=== PATIENT | male | born 1940 | race Two or more races ===

== ENCOUNTER 2020-08-30 | Outpatient (REF) | payer MEDICARE, OTHER, SELFPAY ==
[2020-08-30 07:31] LABS: Hematocrit 34.8 % (42-52); Hemoglobin 9.6 g/dl (14.0-18.0); Mean Corpuscular HGB Conc 27.6 g/dl (31.0-36.0); Mean Corpuscular Hemoglobin 22.9 pg (27.0-33.0); Mean Corpuscular Volume 83.1 fL (80-98); Mean Platelet Volume 9.8 fL (9.4-12.4); Platelet Count 407 X10*3/uL (160-400); Red Blood Count 4.19 X10*6/uL (4.60-5.80); Red Cell Distribution Width 20.4 % (11.0-16.0); White Blood Count 7.1 X10*3/uL (4.8-10.8)
[2020-08-30 07:59] LABS: Anion Gap 14 (12-20); Blood Urea Nitrogen 10 mg/dL (9-16); Calcium 8.2 mg/dL (8.4-10.2); Carbon Dioxide 34 mmol/L (22-29); Chloride 102 mmol/L (96-108); Estimated Glomerular Filt Rate > 60; Glucose Random 195 mg/dL (60-115); Potassium 4.6 mmol/l (3.3-5.1); Sodium 145 mmol/L (135-145)
== END 2020-08-30 00:01 | disposition home or self-care (01) ==
LOC: HO.MMNH1L
PROVIDERS: Visit Provider Family Medicine
DX: U07.1 COVID-19 (principal); I10 Essential (primary) hypertension; E11.9 Type 2 diabetes mellitus without complications
CPT/HCPCS: 36415; 80048; 85027

== ENCOUNTER 2023-06-26 09:49 | Outpatient (AMB) | payer MEDICARE, OTHER, SELFPAY ==
--- NOTE | 2023-06-26 10:04 | HO.NEPHOV ---
HPI HPI Comments History of Present Illness Details I had the privilege of seeing Servando in follow-up of his mild CKD on backdrop of history of hyperkalemia. 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 He had been initiated on Farxiga. He does not monitor his blood sugar closely. His blood pressure has been at goal. He does not have any edema, shortness of breath, proximal nocturnal dyspnea or orthopnea. He has no urinary symptoms and takes adequate fluid intake by mouth. He avoids nonsteroidal anti-inflammatory medications. He had no active complaints at the time of this office visit. [facility] Medical History (Updated 06/27/23 @ 06:40 by Saul Landa MD) Chronic kidney disease, stage 2 (mild) Essential (primary) hypertension Hyperkalemia Family History (Updated 06/26/23 @ 10:21 by Joslyn Villar MA) Maternal Uncle Diabetes Mother Cancer Brother Cancer (Updated 06/26/23 @ 10:16 by Joslyn Villar MA) Alcohol intake: never Patient Tobacco Use Status: Never used Tobacco Vital Signs 06/26/23 10:07 Height 5 ft 9 in Weight 245 lb BMI 36.2 BP 138/72 Blood Pressure Location Rt brachial Position Sitting Physical Exam Vital Signs: Last Vital Signs BP 138/72 06/26/23 10:07 BMI result Body Mass Index 36.2 Const General: comfortable and no acute distress Orientation/consciousness: patient oriented x3 HEENT Head: Yes normocephalic Mouth: Normal oral and palatal mucosa present Eyes EOM: EOMs intact bilaterally Neck Neck: Yes supple Resp Auscultation: clear to auscultation bilaterally Cardio Jugular venous distension: no JVD Rate: regular rate GI Palpation (GI): Soft to palpation Auscultation: normal bowel sounds General: Yes no CVA tenderness Back/Spine/Pelvis Back: no CVA tenderness Skin General skin exam: no rashes or lesions noted Neuro General: patient oriented x3 and moves all extremities Extrem General: Yes no pedal edema Assessment & Plan Assessment & Plan (1) Chronic kidney disease, stage 2 (mild): Code(s): N18.2 - Chronic kidney disease, stage 2 (mild) (2) Hypertension: Code(s): I10 - Essential (primary) hypertension Plan 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 He had been on ACEI which had been discontinued. When he had hyperkalemia he most likely had reduced aldosterone, reduced distal perfusion of the nephron with relative insulin deficiency. His hyperkalemia had resolved. His blood sugar control needs to be better. He had been started on Farxiga which is tolerating well. His blood pressure in the office was at goal. He is tolerating allopurinol and statins. He is also taking Florinef. I did not make any medication changes today. He was encouraged to cut back salt in the diet, lose weight and remain well hydrated. Follow-up about laboratory studies were ordered. All questions were answered. Time spent retrieving data, patient encounter and documentation 31 minutes. Orders: Orders Calcium 06/26/23 N18.2 - Chronic kidney disease, stage 2 (mild) Protein Creatinine Ratio, Ur 06/26/23 N18.2 - Chronic kidney disease, stage 2 (mild) Electrolytes 06/26/23 N18.2 - Chronic kidney disease, stage 2 (mild) Blood Urea Nitrogen 06/26/23 N18.2 - Chronic kidney disease, stage 2 (mild) Creatinine 06/26/23 N18.2 - Chronic kidney disease, stage 2 (mild) Coding Level of Care Code Est Pt Level 4 (12028) Diagnoses Chronic kidney disease, stage 2 (mild) N18.2 Hypertension I10
[2023-06-26 10:07] VITALS: BP 138/72; BMI 36.2
== END 2023-06-26 10:44 | disposition home or self-care (01) ==
PROVIDERS: Visit Provider Internal Medicine Nephrology
DX: I12.9 Hypertensive chronic kidney disease with stage 1 through stage 4 chronic kidney disease, or unspecified chronic kidney disease (principal); N18.2 Chronic kidney disease, stage 2 (mild)
CPT/HCPCS: 99214

== ENCOUNTER → 2023-06-26 09:49 | Outpatient (BNVA) | payer OTHER, MEDICARE, SELFPAY | PROVIDERS: Visit Provider Internal Medicine Nephrology ==

== ENCOUNTER 2023-09-25 15:41 | Outpatient (AMB) | payer MEDICARE, OTHER, SELFPAY ==
--- NOTE | 2023-09-25 16:11 | HO.NEPHOV_ITS ---
HPI HPI Comments History of Present Illness Details I had the privilege of seeing Servando in follow-up of his mild CKD on backdrop of history of hyperkalemia. He has history of hyperkalemia and had been taking Florinef. He has been developing profound lower extremity edema with weight gain but denied any shortness of breath, paroxysmal nocturnal dyspnea or orthopnea. 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 He had been initiated on Farxiga. He does not monitor his blood sugar closely. His blood pressure has been at goal. He has no urinary symptoms and takes adequate fluid intake by mouth. He avoids nonsteroidal anti-inflammatory medications. He had no other active complaints at the time of this office visit [facility] Medical History (Updated 10/01/23 @ 12:00 by Saul Landa MD) Chronic kidney disease, stage 2 (mild) Essential (primary) hypertension Hyperkalemia Family History Maternal Uncle Diabetes Mother Cancer Brother Cancer Social History Alcohol intake: never Patient Tobacco Use Status: Never used Tobacco Vital Signs 09/25/23 16:14 Height 5 ft 9 in Weight 259 lb 4 oz BMI 38.3 BP 136/80 Blood Pressure Location Lt brachial Position Sitting Pulse 76 Pulse Source Pulse Oximeter Pulse Oximetry (%) 94 Oxygen Delivery Method Room Air Physical Exam Vital Signs: Last Vital Signs Pulse 76 09/25/23 16:14 BP 136/80 09/25/23 16:14 Pulse Ox 94 09/25/23 16:14 Oxygen Delivery Method Room Air 09/25/23 16:14 BMI result Body Mass Index 38.3 Const General: comfortable and no acute distress Orientation/consciousness: patient oriented x3 HEENT Head: Yes normocephalic Mouth: Normal oral and palatal mucosa present Eyes EOM: EOMs intact bilaterally Neck Neck: Yes supple Resp Auscultation: clear to auscultation bilaterally Cardio Jugular venous distension: no JVD Rate: regular rate GI Palpation (GI): Soft to palpation Auscultation: normal bowel sounds General: Yes no CVA tenderness Back/Spine/Pelvis Back: no CVA tenderness Skin General skin exam: no rashes or lesions noted Neuro General: patient oriented x3 and moves all extremities Extrem General: Yes edema Assessment & Plan Assessment & Plan (1) Chronic kidney disease, stage 2 (mild): Code(s): N18.2 - Chronic kidney disease, stage 2 (mild) (2) Hypertension: Code(s): I10 - Essential (primary) hypertension Qualifiers: Hypertension type: primary hypertension Qualified Code(s): I10 - Essential (primary) hypertension (3) Edema: Code(s): R60.9 - Edema, unspecified Qualifiers: Edema type: unspecified Qualified Code(s): R60.9 - Edema, unspecified Plan 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 He had been on ACEI which had been discontinued. When he had hyperkalemia he most likely had reduced aldosterone, reduced distal perfusion of the nephron with relative insulin deficiency. His hyperkalemia had resolved. Currently has hypervolemia. I held his Florinef and started him on Lasix 20 mg daily. His blood sugar control needs to be better. He had been started on Farxiga which is tolerating well. His blood pressure in the office was at goal. He is tolerating allopurinol and statins.I did not make any other medication changes today. He was encouraged to cut back salt in the diet, lose weight and remain well hydrated. Follow-up about laboratory studies were ordered. All questions were answered. Orders: Orders Creatinine 09/25/23 I10 - Essential (primary) hypertension, N18.2 - Chronic kidney disease, stage 2 (mild) Blood Urea Nitrogen 09/25/23 I10 - Essential (primary) hypertension, N18.2 - Chronic kidney disease, stage 2 (mild) Electrolytes 09/25/23 I10 - Essential (primary) hypertension, N18.2 - Chronic kidney disease, stage 2 (mild) Medications: New furosemide (Lasix) 20 mg PO DAILY 30 tabs 0RF Coding Level of Care Code Est Pt Level 4 (84851) Diagnoses Chronic kidney disease, stage 2 (mild) N18.2 Primary hypertension I10 Hypertension type: primary hypertension Edema, unspecified type R60.9 Edema type: unspecified Results Reviewed Nephrology Results: Hgb 9.6 g/dl (14.0-18.0) L 08/30/20 WBC 7.1 X10*3/uL (4.8-10.8) 08/30/20 Plt Count 407 X10*3/uL (160-400) H 08/30/20 Sodium 145 mmol/L (135-145) 08/30/20 Potassium 4.6 mmol/l (3.3-5.1) 08/30/20 Chloride 102 mmol/L (96-108) 08/30/20 Carbon Dioxide 34 mmol/L (22-29) H 08/30/20 BUN 10 mg/dL (9-16) 08/30/20 Creatinine 0.77 mg/dL (0.5-1.4) 08/30/20 Calcium 8.2 mg/dL (8.4-10.2) L 08/30/20
[2023-09-25 16:14] VITALS: BP 136/80; PULSE 76; O2SAT 94; BMI 38.3
== END 2023-09-25 16:47 | disposition home or self-care (01) ==
LOC: HO.HKAS 15:41
PROVIDERS: Visit Provider Internal Medicine Nephrology
DX: I12.9 Hypertensive chronic kidney disease with stage 1 through stage 4 chronic kidney disease, or unspecified chronic kidney disease (principal); N18.2 Chronic kidney disease, stage 2 (mild); R60.9 Edema, unspecified
CPT/HCPCS: 99214

== ENCOUNTER → 2023-09-25 15:41 | Outpatient (BNVA) | payer MEDICARE, OTHER, SELFPAY | PROVIDERS: Visit Provider Internal Medicine Nephrology | DX: I12.9 Hypertensive chronic kidney disease with stage 1 through stage 4 chronic kidney disease, or unspecified chronic kidney disease (principal); N18.2 Chronic kidney disease, stage 2 (mild); R60.9 Edema, unspecified | CPT/HCPCS: 99212 ==

== ENCOUNTER 2023-10-25 11:10 | Outpatient (REF) | payer MEDICARE, OTHER, SELFPAY ==
[2023-10-25 17:40] LABS: Anion Gap 19 (12-20); Blood Urea Nitrogen 14 mg/dL (9-16); Carbon Dioxide 27 mmol/L (22-29); Chloride 102 mmol/L (96-108); Estimated Glomerular Filt Rate > 60; Potassium 3.4 mmol/L (3.3-5.1); Sodium 145 mmol/L (135-145)
== END 2023-10-25 11:11 | disposition home or self-care (01) ==
LOC: HO.HKASLDS 11:10
PROVIDERS: Visit Provider Internal Medicine Nephrology
DX: I10 Essential (primary) hypertension (principal); N18.2 Chronic kidney disease, stage 2 (mild); R60.9 Edema, unspecified; E87.5 Hyperkalemia
CPT/HCPCS: 36415; 80051; 82565; 84520; 99212

== ENCOUNTER 2023-10-25 13:54 | Outpatient (AMB) | payer MEDICARE, OTHER, SELFPAY ==
[2023-10-25 13:32] VITALS: BP 110/62; PULSE 84; O2SAT 95; BMI 37.7
--- NOTE | 2023-10-25 13:32 | HO.NEPHOV_ITS ---
[facility] Medical History (Updated 10/01/23 @ 12:00 by Saul Landa MD) Chronic kidney disease, stage 2 (mild) Essential (primary) hypertension Hyperkalemia Family History Maternal Uncle Diabetes Mother Cancer Brother Cancer Social History Alcohol intake: never Patient Tobacco Use Status: Never used Tobacco Vital Signs 10/25/23 13:32 Height 5 ft 9 in Weight 255 lb BMI 37.7 BP 110/62 Blood Pressure Location Lt brachial Position Sitting Pulse 84 Pulse Source Pulse Oximeter Pulse Oximetry (%) 95 Oxygen Delivery Method Room Air Physical Exam Vital Signs: Last Vital Signs Pulse 84 10/25/23 13:32 BP 110/62 10/25/23 13:32 Pulse Ox 95 10/25/23 13:32 Oxygen Delivery Method Room Air 10/25/23 13:32 BMI result Body Mass Index 37.7 Const General: comfortable and no acute distress Orientation/consciousness: patient oriented x3 HEENT Head: Yes normocephalic Mouth: Normal oral and palatal mucosa present Eyes EOM: EOMs intact bilaterally Neck Neck: Yes supple Resp Auscultation: clear to auscultation bilaterally Cardio Jugular venous distension: no JVD Rate: regular rate GI Palpation (GI): Soft to palpation Auscultation: normal bowel sounds General: Yes no CVA tenderness Back/Spine/Pelvis Back: no CVA tenderness Skin General skin exam: no rashes or lesions noted Neuro General: patient oriented x3 and moves all extremities Extrem General: Yes edema Assessment & Plan Assessment & Plan (1) Hypertension: Code(s): I10 - Essential (primary) hypertension Qualifiers: Hypertension type: primary hypertension Qualified Code(s): I10 - Essential (primary) hypertension (2) Chronic kidney disease, stage 2 (mild): Code(s): N18.2 - Chronic kidney disease, stage 2 (mild) (3) Edema: Code(s): R60.9 - Edema, unspecified Qualifiers: Edema type: unspecified Qualified Code(s): R60.9 - Edema, unspecified Plan 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 He had been on ACEI which had been discontinued. When he had hyperkalemia he most likely had reduced aldosterone, reduced distal perfusion of the nephron with relative insulin deficiency. His hyperkalemia had resolved. Currently has hypervolemia. I held his Florlailaf at the last visit and started him on Lasix 20 mg daily. I increased his lasix to 40 mg daily from today. His blood sugar control needs to be better. He had been started on Farxiga which is tolerating well. His blood pressure in the office was at goal. He is tolerating allopurinol and statins.I did not make any other medication changes today. He was encouraged to cut back salt in the diet, lose weight and remain well hydrated. Follow-up about laboratory studies were ordered. All questions were answered Orders: Orders Blood Urea Nitrogen 2 Months I10 - Essential (primary) hypertension, N18.2 - Chronic kidney disease, stage 2 (mild), R60.9 - Edema, unspecified Creatinine 2 Months I10 - Essential (primary) hypertension, N18.2 - Chronic kidney disease, stage 2 (mild), R60.9 - Edema, unspecified Electrolytes 2 Months I10 - Essential (primary) hypertension, N18.2 - Chronic kidney disease, stage 2 (mild), R60.9 - Edema, unspecified Medications: Changed From furosemide (Lasix) 20 mg PO DAILY 30 tabs 0RF To furosemide 40 mg PO DAILY 30 tabs 3RF Coding Level of Care Code Est Pt Level 4 (60639) Diagnoses Primary hypertension I10 Hypertension type: primary hypertension Chronic kidney disease, stage 2 (mild) N18.2 Edema, unspecified type R60.9 Edema type: unspecified Results Reviewed Nephrology Results: Hgb 9.6 g/dl (14.0-18.0) L 08/30/20 WBC 7.1 X10*3/uL (4.8-10.8) 08/30/20 Plt Count 407 X10*3/uL (160-400) H 08/30/20 Sodium 145 mmol/L (135-145) 08/30/20 Potassium 4.6 mmol/l (3.3-5.1) 08/30/20 Chloride 102 mmol/L (96-108) 08/30/20 Carbon Dioxide 34 mmol/L (22-29) H 08/30/20 BUN 10 mg/dL (9-16) 08/30/20 Creatinine 0.77 mg/dL (0.5-1.4) 08/30/20 Calcium 8.2 mg/dL (8.4-10.2) L 08/30/20
== END 2023-10-25 14:17 | disposition home or self-care (01) ==
PROVIDERS: Visit Provider Internal Medicine Nephrology
DX: I12.9 Hypertensive chronic kidney disease with stage 1 through stage 4 chronic kidney disease, or unspecified chronic kidney disease (principal); N18.2 Chronic kidney disease, stage 2 (mild); R60.9 Edema, unspecified
CPT/HCPCS: 99214

== ENCOUNTER 2025-03-03 13:38 | Outpatient (REF) | payer MEDICARE, OTHER, SELFPAY ==
--- OUTSIDE RECORDS SUMMARY | 2019-03-28 11:20 | XMS_ITS | Continuity of Care Document ---
Author Organization [facility] Address [address] [place] [phone] Phone Care Team Providers Care Boat Deckhand Name Role Phone Filiberto Sandhu DO Unavailable Unavailable Advance Directives Directive Yes / No Effective Date File Name No Information Encounters Encounter Description Practice Location Reason(s) For Visit Diagnoses Date Provider [facility], [address], [id number], [place] tel:[phone] [address] [place] [address] No Information 2018 Edson De Los Santos. [address] [place] [address], [id number], [place]. tel:[phone] Family History Family Member Type Diagnosis Age At Onset No Information Payers Payer name Insurance type Covered republican ID Authoriza tion(s) No Information Social History Type Description Quantity Date Captured Comments Sex Male Smoking Status No Information Chief Complaint And Reason For Visit No Information History Of Present Illness Encounter Date Complaint History Of Prese nt Illness No Information Instructions Date Instruction Additional Infor mation No Information Assessments Type Assessment Date No Information
--- OUTSIDE RECORDS SUMMARY | 2025-03-03 14:27 | XMS_ITS | Clinical Summary ---
Author Organization [facility] Address [address] [place] [phone] Phone Care Team Providers Care C Unix Developer Name Role Phone Unknown, Unknown Primary Care Provider Namrata boucher Allergies Active Allergy Reactions Criticality Noted Date Comments Prednisolone Other (See Comments) 10/23/2011 elevated IOP Medications acetaminophen (TYLENOL) 325 mg tablet Take 2 tablets (650 mg total) by mouth every 6 (six) hours as needed for mild pain or fever. 0 8 Active dorzolamide-ti molol (COSOPT) 22.3-6.8 mg/mL ophthalmic solution Place 1 drop into each eye 2 (two) times a day. 10 mL 12 8 Active fluticasone propionate (FLONASE) 50 mcg/actuation nasal spray 1 spray by Nasal route daily. 8 Active prednisoLONE acetate (PRED MILD) 0.12 % ophthalmic suspension Place 1 drop into the right eye daily. 5 mL 8 Active lisinopril (PRINIVIL,ZEST RIL) 40 MG tablet Take 1 tablet (40 mg total) by mouth daily. 8 Active gabapentin (NEURONTIN) 300 MG capsule Take 1 capsule (300 mg total) by mouth 3 (three) times a day. 8 Active cetirizine (ZYRTEC) 10 MG tablet Take 1 tablet (10 mg total) by mouth daily. 8 Active glipiZIDE (GLUCOTROL) 10 MG tablet Take 1 tablet (10 mg total) by mouth 2 (two) times a day before meals. Active metFORMIN (GLUCOPHAGE) 1000 MG tablet Take 1 tablet (1,000 mg total) by mouth 2 (two) times a day with meals. 8 Active SITagliptin (JANUVIA) 100 MG tablet Take 1 tablet (100 mg total) by mouth daily. Active atorvastatin (LIPITOR) 40 MG tablet Take 1 tablet (40 mg total) by mouth daily. Active metoprolol succinate (TOPROL-XL) 25 MG 24 hr tablet Take 1 tablet (25 mg total) by mouth daily. Active omeprazole (PRILOSEC) 20 MG capsule Take 1 capsule (20 mg total) by mouth 2 (two) times a day. Active traZODone (DESYREL) 50 MG tablet Take 1 tablet (50 mg total) by mouth nightly. 8 Active tamsulosin (FLOMAX) 0.4 mg Cap Take 1 capsule (0.4 mg total) by mouth daily. Active ascorbic acid, vitamin C, (VITAMIN C) 500 MG tablet Take 1 tablet (500 mg total) by mouth daily. Active senna (SENOKOT) 8.6 mg tablet Take 1 tablet by mouth 2 (two) times a day. 8 Active dextrose (D50W) 50 % Syrg syringe Inject 0-50 mL (0-25 g total) into the vein as needed (see administration instructions). Active dextrose (D50W) 50 % Syrg syringe Inject 100 mL (50 g total) into the vein as needed (BG<70). 8 Active allopurinol (ZYLOPRIM) 100 MG tablet Take 3 tablets (300 mg total) by mouth daily. Active amLODIPine (NORVASC) 10 MG tablet Take 0.5 tablets (5 mg total) by mouth daily. 8 Active DULoxetine (CYMBALTA) 60 MG capsule Take 1 capsule (60 mg total) by mouth daily. 8 Active polyethylene glycol (MIRALAX) 17 gram packet Take 17 g by mouth daily as needed. 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 Not on jori e 12/01/2022 Are you concerned about learning? Not on file 12/01/2022 No 12/01/2022 No 12/01/2022 Digital Access Answer Date Recorded No 01/01/2023 No 01/01/2023 No 01/01/2023 Reliable internet access at home? Not on file 01/01/2023 Device with a working camera? Not on file Sex and Gender Information Value Date Recorded Sex Assigned at Not on file Legal Sex Male 2:54 AM EST Gender Identity Not on file Sexual Orientation Not on file Last Filed Vital Signs Vital Sign Reading Time Taken Comments Blood Pressure 142/77 07/04/2018 7:57 AM EST Pulse 68 07/04/2018 7:57 AM EST Temperature 36.3 C (97.4 F) 07/04/2018 7:57 AM EST Respiratory Rate 18 07/04/2018 7:57 AM EST Oxygen Saturation 96% 07/04/2018 12:48 AM EST Inhaled Oxygen Concentration 50% 06/28/2018 3 :07 PM EST Weight 136.1 kg (300 lb) 06/27/2018 3:36 PM EST Height 177.8 cm (5' 10 ) 06/27/2018 3:36 PM EST Body Mass Index 43.05 06/27/2018 3:36 PM EST Plan of Treatment Health Maintenance Due Date Last Done Comments Adult Td,Tdap Booster 1942 BLOOD PRESSURE 1942 HEMOGLOBIN A1C 1942 DEPRESSION SCREENING 1954 PNEUMOCOCCAL VACCINES (50+ years) (1 of 2 - PCV) 1961 DIABETIC EYE EXAM 09/26/2014 RSV VACCINE (1 - 1-dose 75+ series) 2017 CREATININE LEVEL 07/04/2019 07/04/2018, , 07/02/2018, Additional history exists POTASSIUM LEVEL 07/04/2019 07/04/2018, 06/07, 07/02/2018, Additional history exists COVID-19 VACCINE ( - season) 2024 08/24/2020 ZOSTER VACCINES Completed 01/27/2019, 12/2018, 09/23/2018, Additional history exists HEPATITIS A VACCINES Aged Out No long er eligible based on patient's age to complete this topic HIB VACCINES Aged Out No longer eligi ble based on patient's age to complete this topic MENINGOCOCCAL VACCINES (ACWY) Aged Out No longer eligible based on patient's age to complete this topic MENINGOCOCCAL VACCINES (B) Aged Out N o longer eligible based on patient's age to complete this topic Medical Devices Not on file Procedures Procedure Name Priority Date/Time Associated Diagnosis Comments BASIC METABOLIC PANEL Routine 07/04/2018 9:37 AM EST from Last 3 Months or Most Recently Relevant to Health Maintenance Results * (ABNORMAL) Basic metabolic panel (07/04/2018 9:37 AM EST) SODIUM 141 136 - 145 mmol/L [facility] POTASSIUM 4.0 3.4 - 5.1 mmol/L [facility] CHLORIDE 101 98 - 107 mmol/L [facility] CO2 28 22 - 31 mmol/L [facility] BUN 19 6 - 23 mg/dL [facility] CREATININE 0.88 0.50 - 1.20 mg/dL [facility] GLUCOSE 270(H) 70 - 100 mg/dL [facility] CALCIUM 8.8 8.8 - 10.7 mg/dL [facility] EGFR 83 >59 mL/min/1.7 3m2 [facility] Comment:If patient is black, multiply result by 1.159. Estimated glomerular filtration rate calculated using the CKD-EPI equation. ANION GAP 12 7 - 17 mmol/L [facility] Blood 07/04/2018 9:37 AM EST 07/04/2018 10:10 AM EST Emerita Rothman MD LAB BLOOD ORDERABLES Final Re sult Performing Organization Address City/State/[facility] Co de Phone Number [facility] [address] [place] [address] from Last 3 Months or Most Recently Relevant to Health Maintenance Insurance [employer] TOTAL CHOICE INDEMNITY MEDICARE PART A & B [employer] TOTAL CHOICE INDEMNITY MEDICARE PART A & B [employer] INDEMNITY MEDICARE PART A & B [employer] INDEMNITY MEDICARE PART A & [place] [address] [place] [address] TOTAL CHOICE INDEMNITY MEDICARE PART A & B [employer] [facility] TOTAL CHOICE INDEMNITY MEDICARE PART A & B [employer] [facility] TOTAL CHOICE INDEMNITY MEDICARE PART A & B [employer] TOTAL CHOICE INDEMNITY MEDICARE PART A & B [employer] TOTAL CHOICE INDEMNITY MEDICARE PART A & [place] [address] [place] [address] TOTAL CHOICE INDEMNITY MEDICARE PART A & B Advance Directives For more information, please contact: [phone] (9AM - 5PM [place], Sunday-Sunday) * Full Code (Confirmed) (Latest Code Status on File) Date Activated Date Inactivated Comments 06/27/2018 11:01 PM 07/04/2018 4:09 PM Question Answer Comments Code Status Confirmed With: FamilySurrogate Code Status Communicated To: Other (specify belo w) Code Discussion Comments: Archana Barahona * Full Code (Presumed) Date Activated Date Inactivated Comments 06/27/2018 6:33 PM 06/27/2018 11:01 PM Care Teams C Unix Developer Relationship Specialty Start Date End Date Unknown, Unknown, PCP - General 06/10/18 Additional Source Comments The information contained in this document represents components of the legal health record. It is not the complete legal health record.[facility]
--- OUTSIDE RECORDS SUMMARY | 2025-03-03 14:27 | XMS_ITS | Data Portability ---
Author Organization [place] [facility], Allergy Address [address] [place] [id number] Care Team Providers Care Petroleum Production Engineer Name Role Phone RUPAL WOOD Primary Care Provider Assessment Encounter Date Assessment Date Assessment LastModified by Organization Details LastModified Time 01/22/2024 01/22/2024 Patient with history of bilateral hearing loss, wearing hearing aids, notes recent upper respiratory infection and trauma to his left ear canal with a Q-tip. CT scan January 07 showed left maxillary sinus fluid and an opacified right middle ear and mastoid. Examination today shows a retracted left tympanic membrane and a dull right membrane without obvious fluid. Tuning fork examination was midline. There is a marked septal deviation to the left side. Suggest trial of fluticasone nasal spray and follow-up with audiometric testing [email or web address] Not available 01/22/2024 12:01:55 02/12/2024 02/12/2024 Recommendation s: Follow up with referring provider. jama Not available 02/12/2024 11:01:53 Plan of Treatment Reminders Order Date Submit Date Provider Last Modified By Organization Details Last Modified Time Details Appointments None recorded. Lab None recorded. Referral None recorded. Procedures None recorded. Surgeries None recorded. Imaging None recorded. Medication Orders fluticasone propionate 50 mcg/actuati on nasal spray,suspe nsion 2023 024 [facility], [address] [place] [address], [phone], 12:04:49 Patient TargetsNo targets recorded. Patient InstructionsNo instructions recorded. Reason for Referral None Reported. Results Created Date Observation Date Name Description Value Unit Range Abnormal Flag Note LastModifiedBy Organization Detail LastModifiedTime 02/15/20 24 02/04/2024 audio gram No observ ation record ed. [email or web address] Not Available 2023 10:49:11 02/15/20 24 03/14/2020 audio gram No observ ation record ed. [email or web address] Not Available 2023 10:50:21 02/15/20 24 11/17/2018 audio gram No observ ation record ed. [email or web address] Not Available 2023 10:51:21 02/15/20 24 audio gram No observ ation record ed. [email or web address] Not Available 02/03 16:25:27 Result Notes None recorded. Problems Name Problem SNOMED Code Status Onset Date Resolution Date Notes Provider Name and Address Organization Details Recorded Time Chronic maxillary sinusitis 95736186 Active 2023 MEGHNA HOOPER MD [address] [address], [place], [phone], [facility] - [facility] 4 11:59:38 Deviated nasal septum 863887465 Active 2023 MEGHNA HOOPER MD [address] [address], [place], [address], [facility] 4 11:59:43 Dysfunction of eustachian tube 54728148 Active 2023 MEGHNA HOOPER MD [address] [address], [place], [address], [facility] [place] 4 12:00:24 Sensorineural hearing loss of bilateral ears 631276210 Active 2023 DARY JACKSON [address] [place] [address], [place], [phone], [facility] 4 11:18:13 Problem Notes None recorded. Procedures Surgical History Date Name Laterality Status Provider Name and Address Organization Details Recorded Time 02/12/2024 Comp Audio with Tymps - 71991 & 37387 completed DARY JACKSON [address], [address], [facility] - [facility] 02/12/2024 11:18:06 Imaging Results None recorded. Procedure Notes None recorded. Medical Equipment None Reported. Medications Name Sig Start Date Stop Date Status Note LastModified by Organization Details LastModified Time fluticasone propionate 50 mcg/actuatio n nasal spray,suspen delroy Schulenburg 2 sprays every day by intranasal route. 2023 active Not Available Not Available Not Avai lable Vitals Date Recorded Body weight Body mass index (BMI) Body height Provider Name and Address Organization Details Last Updated DateTime 01/22/2024 919370.17 g 39.9 kg/m2 165.1 cm [facility] 01/22/2024 11:31:12 Social History None recorded. Functional Status None recorded. Mental Status None recorded. Family History Nothing Reported. Medical History Condition Response Kidney Disease Y Hypertension Y Past Encounters Encounter ID Performer Location Encounter Start Date Encounter Closed Date Diagnosis/Indication Diagnosis SNOMED-CT Code Diagnosis ICD10 Code Diagnosis Note [id number] MEGHNA MASON MD [facility] [address] [address] 01/22/2024 11:14:49 01/22/2024 12:06:44 Chronic maxillary sinusitis 25397808 J32.0 Deviated nasal septum 12 3597285 J34.2 Dysfunctio n of eustachian tube 60591653 H68.023 [id number] DARY JACKSON [facility] [address] [address] 02/12/2024 11:01:14 02/12/2024 18:43:31 Sensorineural hearing loss of bilateral ears 114384486 H90.3 Audiologic al evaluation results:Ri ght ear:Mild to profound sensorineu ral hearing loss with fair word recognitio n.Left ear:Modera te to profound sensorineu ral hearing loss with good word recognitio n.Tympanom etry:Right Ear:Type ALeft Ear:Type A Health Concerns Section Related Observation LastModified by Organization Detai ls LastModified Time None Recorded Concern Status LastModified by Organization Details LastModified Time None Recorded Advance Directives Directive None Recorded Payers Insurance Date Sequence Insurance Name Policy Number Policy Tinoco Covered Member ID Tinoco Member ID Guarantor Name 02/12/2024 1 [place]IC[place]: [facility] [employer] Rajendra Colon [id number] Servando Colon 02/12/2024 2 [facility] PLAN F (MEDICARE SUPPLEMENT) [id number] Rajendra Colon [id number] Servando Colon
--- OUTSIDE RECORDS SUMMARY | 2025-03-03 14:27 | XMS_ITS | Clinical Summary ---
Author Organization [facility] Address [address] [facility] [address] [place] [address] Phone Care Team Providers Care Cotton Acreage Measurer Name Role Phone Darian Shaffer MD Primary Care Provider [phone] Allergies Active Allergy Reactions Criticality Noted Date Comments Heparin Medium 07/28/2020 Other reaction(s): Nausea Medications acetaminophen (TYLENOL) 325 MG tablet Take 500 mg by mouth every 4 (four) hours if needed for mild pain Active albuterol HFA (PROVENTIL HFA;VENTOLIN HFA) 108 (90 Base) MCG/ACT inhaler Inhale 2 puffs every 6 (six) hours if needed for wheezing Active ascorbic acid (VITAMIN C) 500 MG tablet Take 500 mg by mouth 1 (one) time each day Active allopurinol (ZYLOPRIM) 300 MG tablet Take 300 mg by mouth 1 (one) time each day Active atorvastatin (LIPITOR) 40 MG tablet Take 40 mg by mouth 1 (one) time each day Active cetirizine (ZyrTEC) 10 MG chewable tablet Chew 10 mg 1 (one) time each day Active colchicine 0.6 MG tablet Take 0.6 mg by mouth 1 (one) time each day Active dorzolamide-marva olol (COSOPT) 22.3-6.8 MG/ML ophthalmic solution Administer 1 drop into the left eye 2 (two) times a day Active Dulaglutide 1.5 MG/0.5ML solution pen-injector Inject under the skin Active DULoxetine (CYMBALTA) [address] capsule Take 60 mg by mouth 1 (one) time each day Do not crush or chew. Active gabapentin (NEURONTIN) 400 MG capsule Take 1,200 mg by mouth 3 (three) times a day Active glipiZIDE (GLUCOTROL) 10 MG tablet Take 10 mg by mouth 2 (two) times a day before meals Active insulin lispro (HumaLOG) 100 UNIT/ML injection Inject under the skin 3 (three) times a day before meals Active lidocaine (XYLOCAINE) 5 % ointment Apply topically if needed for mild pain Active lisinopril 20 MG tablet Take 20 mg by mouth 1 (one) time each day Active Melatonin 5 MG tablet Take 1 tablet by mouth every night Active metFORMIN (GLUCOPHAGE) 1000 MG tablet Take 1,000 mg by mouth 2 (two) times a day with meals Active omeprazole (PriLOSEC) [address] capsule Take 20 mg by mouth in the morning and 20 mg in the evening. Do not crush or chew. . Active gentamicin-pred nisoLONE (PRED-G) 0.3-1 % ophthalmic drops Administer 1 drop into the left eye 1 (one) time each day Active rivaroxaban (XARELTO) 20 MG tablet Take 20 mg by mouth 1 (one) time each day with dinner Active tamsulosin (FLOMAX) 0.4 MG 24 hr capsule Take 0.4 mg by mouth 1 (one) time each day Active traZODone (DESYREL) 50 MG tablet Take 50 mg by mouth every night Active Vitamin E 97383 UNIT/60GM cream Apply topically Active fluticasone (FLONASE) 50 MCG/ACT nasal spray fluticasone propionate 50 mcg/actuation nasal spray,suspension Active prednisoLONE acetate (PRED FORTE) 1 % ophthalmic suspension prednisolone acetate 1 % eye drops,suspension Active fludrocortisone 0.1 MG tablet Take 0.1 mg by mouth 1 (one) time each day Active amLODIPine (NORVASC) 2.5 MG tablet Take 1 tablet by mouth 1 (one) time each day 2 Active sildenafil (Viagra) 25 MG tablet Take 1 tablet (25 mg total) by mouth 1 (one) time each day if needed for erectile dysfunction 10 tablet 2 Active ferrous sulfate 325 (65 Fe) MG tablet Take 1 tablet (325 mg total) by mouth in the morning and 1 tablet (325 mg total) in the evening. 60 tablet 5 4 Active Active Problems Problem Noted Date Diagnosed Date Neuropathy due to diabetes mellitus 08/30/2021 Renal impairment 08/30/2021 Hypertension 08/30/2021 Chronic kidney disease, stage 2 (mild) 2 Hypotension, not otherwise specified 04/18/2021 Acute kidney failure 07/28/2020 Essential (primary) hypertension 07/28/2020 Hyperkalemia 07/28/2020 Stage 3 chronic kidney disease 07/28/2020 Resolved Problems Problem Noted Date Diagnosed Date Resolved Date Benign prostatic hyperplasia 08/30/2021 06/21/2022 Colonoscopy 08/30/2021 06/21/2022 Overview (08/30/2021): carcinoid polyp 09/19 - desilets Corneal transplant 08/30/2021 Hearing aid worn 08/30/2021 06/21/2022 Stenosis of intervertebral foramina 08/30/2021 06/21/2022 Greater trochanteric pain syndrome 08/30/2021 06/21/2022 Allergic rhinitis 07/28/2020 04/18/2021 Glaucoma 07/28/2020 04/18/2021 Overview (04/18/2021): Angle-closure glaucoma - indeterminate Atrophic disorder of skin 07/28/2020 Benign prostatic hyperplasia with lower urinary tract symptom 07/28/2020 04/18/2021 Bronchitis, not specified as acute or chronic 07/28/20 20 04/18/2021 Corneal transplant status 07/28/2020 COVID-19 07/28/2020 04/18/2021 Diabetes mellitus due to und erlying condition with diabetic neuropathy 07/28/2020 04/18/2021 Difficulty in walking 07/28/20202020 Dysphagia, pharyngoesophageal phase 07/28/2020 04/18/2021 Gout 07/28/2020 04/18/2021 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 04/18/2021 History of falling 07/28/2020 Keratoconus, unspecified, 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 04/18/2021 Low back pain 07/28/2020 04/18/2021 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 04/18/2021 Morbid (severe) obesity due to excess calories 07/28/2020 04/18/2021 Muscle wasting and atrophy, not elsewhere classified, lower leg 07/28/2020 04/18/2021 Obstructive sleep apnea 07/28/202004/06 Osteoarthritis of knee 07/28/202004/18 Other intervertebral disc de generation, lumbosacral region, NOS 07/28/2020 04/18/2021 Overview (05/06/2024): Replacing diagnoses that were inactivated after the 05/06/24 Regulatory Import Other pulmonary embolism wit hout acute cor pulmonale 07/28/2020 04/18/2021 Other specified anemia 07/28/202004/18 Personal history of other ve nous thrombosis and embolism 07/28/2020 04/18/2021 Personal history of pulmonary embolism 07/28/2020 04/18/2021 Recurrent major depressive disorder 07/28/2020 04/18/2021 Syncope and collapse 07/28/2020 021 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 07/28/2020 04/18/2021 Trigger finger 07/28/2020 04/18/2021 Trochanteric bursitis of right hip 07/28/2020 04/18/2021 Unspecified abnormalities of gait and mobility 07/28/2020 04/18/2021 Weakness 07/28/2020 04/18/2021 Respiratory failure 06/27/2018 04/18/20 21 Deep venous thrombosis 03/15/201606/21 Primary open angle glaucoma 12/28/2015 04/18/2021 Overview (04/18/2021): Primary open angle glaucoma - mild - OS Immunizations Immunization Administration Dates Next Due Influenza Whole 05/13/2020,04/26/2011,06/06/2009 ,05/25/2008 Pfizer SARS-COV-2 05/21/2021,11/16/2020,08/24/19 21 Pneumococcal Conjugate 13-Valent 07/03/2014 Pneumococcal Polysaccharide 07/13/2009 SARS-CoV-2, Unspecified 08/24/2020 Shingrix 01/27/2019,01/08/2019,09/23/2018 ,08/09/2018 Td, Unspecified 06/08/2008 Tdap 05/26/2014 Zoster 08/06/2018,12/29/2009 Family History Medical History Relation Comments Stroke Father Cancer Mother Relation Status Comments Father Mother Social History Tobacco Use Types Packs/Day Years Used Date Smoking Tobacco: Former Smokeless Tobacco: Never Tobacco Cessation:Counseling Given: Not Answered Alcohol Use Standard Drinks/Week Comments Yes 0 (1 standard drink = 0.6 oz pur e alcohol) Sex and Gender Information Value Date Recorded Sex Assigned at Not on file Legal Sex Male 4:59 PM EST Gender Identity Not on file Sexual Orientation Not on file Last Filed Vital Signs Vital Sign Reading Time Taken Comments Blood Pressure 140/70 01/04/2023 2:40 PM EDT Pulse 80 06/22/2022 2:06 PM EST Temperature - - Respiratory Rate - - Oxygen Saturation 96% 05/27/2021 11:02 AM EDT Inhaled Oxygen Concentration - - Weight 116 kg (256 lb) 01/04/2023 2:40 PM EDT Height - - Body Mass Index - - Plan of Treatment Health Maintenance Due Date Last Done Comments Diabetes: Hemoglobin A1C 04/18/2021 Diabetes: Ophthalmology Exam 04/18/2021 Diabetes: Pedal Pulse Checked 04/18/2021 Diabetes: Sensory Foot Exam 04/18/2021 Diabetes: Visual Foot Exam 04/18/2021 Influenza Vaccine (#1) 2025 , 04/26/2011, 06/06/2009, Additional history exists Pneumococcal Vaccine: 50+ Years Completed 07/03/2014, 07/13/2009 Pneumococcal Vaccine: Peds (0 to 5 Years) and At-Risk Patients (6 to 49 Years) Discontinued 07/03/2014, 07/13/2009 Hepatitis B Vaccine Aged Out No longe r eligible based on patient's age to complete this topic Insurance Medicare [facility] Care Teams Cotton Acreage Measurer Relationship Specialty Start Date End Date Darian Shaffer MD AGUILAR TALLEY [place] PCP - General Internal Medicine 04/18/21
--- OUTSIDE RECORDS SUMMARY | 2025-03-03 14:28 | XMS_ITS ---
Author Organization [facility] Care Team Providers Care Real Estate Professional Name Role Phone Sean Davison Unavailable Unavailable Planeenriqueta, Michelle Unavailable Unavailable Levheim, Michelle Unavailable Unavailable Allergies and adverse reactions Code CodeSystem Substance Reaction Severity StartDate Concern Status 523878 RXNORM Heparin Nausea (code- 912728117, SNOMED CT) Moderate 07/28/2020 active Care Team Name Role Address Phone Organization Dates Sean Davison PCP [address] [facility] [employer] [address], [place], [address], [place]Office[place] : [facility] 07/29/2020 - 08/30/2020 Michelle Planeta [facility] 07/29/2020 - 08/30/2020 Michelle Levheim [address], [place], [address], [place]Office[place] [facility] 07/29/2020 - 08/30/2020 Immunizations Immunization Status Vaccine Details Vaccine Code CodeSystem Date Notes SARS-COV-2 (COVID-19) completed Step 1 of Multi-step with next step required created date: 10/20/2020 consent date: 10/20/2020 administered date: 08/24/2020 PFIZER [id number] SARS-COV-2 (COVID-19) new created date: 08/02/2020 consent date: 08/02/2020 Mental Status Section Date Assessment Total Score Description 08/30/2020 BIMS 15 cognitively int act CAM 0 No delirium ind icated PHQ-9 00 08/02/2020 BIMS 15 cognitively int act CAM 0 No delirium ind icated PHQ-9 00 Problems Problem # Description Date of onset Resolved Date Code CodeSystem Concern Status 1 ACUTE KIDNEY FAILURE , UNSPECIFIED [address] active 2 ACUTE RESPIRATORY FAILURE, UNSPECIFIED WHETHER WITH HYPOXIA OR HYPERCAPNIA [address] active 3 ALLERGIC RHINITIS, UNSPECIFIED [address] active 4 ATROPHIC DISORDER OF SKIN, UNSPECIFIED [address] active 5 BENIGN PROSTATIC HYPERPLASIA WITH LOWER URINARY TRACT SYMPTOMS [address] active 6 BRONCHITIS, NOT SPECIFIED ACUTE OR CHRONIC [address] active 7 CHRONIC KIDNEY DISEASE, STAGE 3 UNSPECIFIED [address] active 8 CORNEAL TRANSPLANT STATUS [address] active 9 COVID-[address] active 10 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, UNSPECIFIED [address] active 11 DIFFICULTY IN WALKIN G, NOT ELSEWHERE CLASSIFIED [address] active 12 DYSPHAGIA, OROPHARYNGEAL PHASE [address] active 13 DYSPHAGIA, PHARYNGOESOPHAGEAL PHASE [address] active 14 ESSENTIAL (PRIMARY) HYPERTENSION [address] active 15 GOUT, UNSPECIFIED [address] active 16 HEPARIN INDUCED THROMBOCYTOPENIA (HIT) [address] active 17 HISTORY OF FALLING [address] active 18 HY[address]KALEMIA [address] active 19 KERATOCONUS, UNSPECIFIED, UNSPECIFIED EYE [address] active 20 LOW BACK PAIN [address] active 21 MAJOR DEPRESSIVE DISORDER, RECURRENT, UNSPECIFIED [address] active 22 MALIGNANT CARCINOID TUMOR OF THE RECTUM [address] active 23 MORBID (SEVERE) OBESITY DUE TO EXCESS CALORIES [address] active 24 MUSCLE WASTING AND ATROPHY, NOT ELSEWHERE CLASSIFIED, LEFT LOWER LEG [address] active 25 MUSCLE WASTING AND ATROPHY, NOT ELSEWHERE CLASSIFIED, RIGHT LOWER LEG [address] active 26 OBSTRUCTIVE SLEEP APNEA (ADULT) (PEDIATRIC) [address] active 27 OSTEOARTHRITIS OF KNEE, UNSPECIFIED [address] active 28 OTHER FATIGUE [address] active 29 OTHER INTERVERTEBRAL DISC DEGENERATION, LUMBAR REGION [address] active 30 OTHER PULMONARY EMBOLISM WITHOUT ACUTE COR PULMONALE [address] active 31 OTHER SPECIFIED ANEMIAS [address] active 32 PERSONAL HISTORY OF OTHER VENOUS THROMBOSIS AND EMBOLISM [address] active 33 PERSONAL HISTORY OF PULMONARY EMBOLISM [address] active 34 SYNCOPE AND COLLAPSE [address] active 35 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 [address] active 36 TRIGGER FINGER, UNSPECIFIED FINGER [address] active 37 TROCHANTERIC BURSITI S, RIGHT HIP [address] active 38 TYPE 2 DIABETES MELLITUS WITHOUT COMPLICATIONS [address] active 39 UNSPECIFIED ABNORMALITIES OF GAIT AND MOBILITY [address] active 40 UNSPECIFIED GLAUCOMA [address] active 41 WEAKNESS [address] active Reason for Referral No Reasons for Referral Entered Social History Social History Observation Description Start Date End Date Code Code System Current Smoking Status Tobacco smoking consumption unknown 047979991 SNOMED CT Sex Assigned At Male 1940 63476-3 [facility] Gender Identity Vital Signs Code Code System Vitals Name Values and Units Timing Information 2339-0 [facility] Blood Sugar Kmmrf=459.0 Units=mg/dL 08/30/2020 8462-4 [facility] Blood Pressure-Diastolic Value=70 Un its=mmHg 08/30/2020 8480-6 [facility] Blood Pressure-Systolic Bpavx=331 Un its=mmHg 08/30/2020 8867-4 [facility] Heart rate Value=78.0 Units=/min 32664-6 [facility] Pain Level Value=0.0 08/30/2020 9279-1 [facility] Respiratory Rate Value=18.0 Units=/m in 08/30/2020 8310-5 [facility] Body Temperature Value=97.3 Units= F 08/30/2020 40325-4 [facility] O2 % BldC Oximetry Value=95.0 Units= % 08/30/2020 91076-2 [facility] Weight Ekkqy=995.0 Units=Lbs 8302-2 [facility] Height Value=70.0 Units=Inches 07/29/2020
[2025-03-03 18:07] LABS: MANUAL DIFF FLAG NO
[2025-03-03 18:17] LABS: Hematocrit 43.3 % (42.0-52.0); Hemoglobin 13.4 g/dl (14.0-18.0); Imm Gran Abs Auto 0.02 X10*3/uL (0.00-0.03); Imm Gran Pct Auto 0.3 % (0.0-0.4); Lymphocytes Absolute Auto 2.4 X10*3/uL (1.2-4.9); Mean Corpuscular HGB Conc 30.9 g/dl (31.0-36.0); Mean Corpuscular Hemoglobin 27.9 pg (27.0-33.0); Mean Corpuscular Volume 90.0 fL (80.0-98.0); NRBC Abs Auto 0.000 X10*3/uL (0.0-0.012); NRBC Pct Auto 0.0 /100WBC (0.0-0.2); Platelet Count 240 X10*3/uL (160-400); Red Blood Count 4.81 X10*6/uL (4.60-5.80); White Blood Count 8.0 X10*3/uL (4.8-10.8)
[2025-03-03 18:29] LABS: Albumin Level 4.5 g/dL (3.5-5.0); Anion Gap 16 (12-20); Blood Urea Nitrogen 15 mg/dL (9-16); Calcium 8.9 mg/dL (8.4-10.2); Carbon Dioxide 29 mmol/L (22-29); Chloride 105 mmol/L (96-108); Estimated Glomerular Filt Rate > 60; Iron 69 mcg/dL (45-160); Percent Iron Saturation 22 % (15-50); Potassium 4.2 mmol/L (3.3-5.1); Sodium 146 mmol/L (135-145); Total Iron Binding Capacity 315 mcg/dL (228-428); Unsaturated Iron Binding 246 ug/dL
[2025-03-03 18:42] LABS: Protein/Creatinine Ratio, Ur 0.52 (<0.2); Total Protein Urine Random 20 mg/dL (<12)
[2025-03-03 18:47] LABS: Ferritin 24 ng/mL (20-250)
== END 2025-03-03 13:39 | disposition home or self-care (01) ==
LOC: HO.HKASLDS 13:38
PROVIDERS: Visit Provider Internal Medicine Nephrology
DX: I12.9 Hypertensive chronic kidney disease with stage 1 through stage 4 chronic kidney disease, or unspecified chronic kidney disease (principal); N18.2 Chronic kidney disease, stage 2 (mild); R60.9 Edema, unspecified
CPT/HCPCS: 36415; 80051; 82040; 82310; 82565; 82570; 82728; 83540; 84156; 84520; 85025

== ENCOUNTER 2025-03-05 11:36 | Outpatient (AMB) | payer MEDICARE, OTHER, SELFPAY ==
--- OUTSIDE RECORDS SUMMARY | 2015-02-23 07:15 | XMS_ITS | Continuity of Care Document ---
Author Organization [facility] Address [address] [place] [address] [place] Phone Care Team Providers Care Polishing Wheel Repairer Name Role Phone Yojana CALDWELL, FACR, Cassie Unavailable Unavailab le Allergies, Adverse Reactions, Alerts Substance Reaction Status Criticality No Known allergies Medications Medication Instructions Dosage Effective Dates (start - stop) Status Comments aspirin 325 mg tablet,delayed release take 1 tablet by oral route every day 325 MG - Active Januvia 100 mg tablet take 1 tablet by oral route every day 100 MG - Active tamsulosin ER 0.4 mg capsule,extended release 24 hr take 1 capsule by oral route every day 1/2 hour following the same meal each day 0.4 MG - Active pravastatin 40 mg tablet take 1 tablet by oral route every day 40 MG - Active glipizide 10 mg tablet take 1 tablet by ORAL route every day before meals 10 MG - Active tramadol 50 mg tablet take 1 tablet by oral route every 6 hours as needed 50 MG - Active LISINOPRIL-HYDROCHL OROTHIAZIDE (unknown strength) take 1 tablet by oral route every day Not Available - Active omeprazole 20 mg capsule,delayed release take 1 capsule by oral route every day before a meal 20 MG - Active gabapentin 300 mg capsule take 1 capsule by oral route 3 times every day 300 MG - Active metformin 1,000 mg tablet take 1 tablet by oral route 2 times every day with morning and evening meals 1000 MG - Active Advance Directives Directive Yes / No Effective Date File Name No Information Encounters Encounter Description Practice Location Reason(s) For Visit Diagnoses Date Provider Providers Copied on Encounter [facility] , [address] [facility] [address], [id number], [place] tel:[phone] No Information Yojana Matthews. [address], [place], [id number], [place]. tel:[phone] Family History Family Member Type Diagnosis Age At Onset Brother Problem (finding) Cancer Father Problem (finding) stroke Daughter Problem (finding) alcoholism Mother Problem (finding) malignant neoplasm of l iver Payers Payer name Insurance type Covered democrat ID Tong santiago([facility] [id number] Social History Type Description Quantity Date Captured Comments Alcohol Use Details 2 drinks weekly Caffeine Use Details coffee 2 cups per day Tobacco Use Status Smoking Status Former smoker Sex Male Vital Signs Date / Time: Height Weight BMI Pulse Rate Blood Pressure Temperature Respiratory Rate Body Surface Area Head Circumference Head Circ. Percentile Wt./Manohar. Percentile BMI percentile Pulse Ox Inhaled Ox 11:54 AM 68.00 in 122.016 kg (269.00 lbs) 40.9 0 kg/m eter (2) 72 /min 122/78 mm[Hg] Chief Complaint And Reason For Visit No Information Reason For Referral Reason For Referral No Information Plan Of Treatment Date Type Action Status Patient Education Back Pain: After Your V isit completed History Of Present Illness Encounter Date Complaint History Of Prese nt Illness No Information Functional Status Date Functional Assessmen t Pain Score 10/10 Instructions Date Instruction Additional Infor mation No Information Assessments Type Assessment Date No Information Patient Care Teams Name Effective Dates (start - stop) Status Members No Information
--- NOTE | 2025-03-05 12:16 | HO.NEPHOV ---
Vital Signs 03/05/25 12:17 Weight 247 lb 2 oz BP 134/64 Blood Pressure Location Rt brachial Position Sitting Pulse 74 Pulse Source Pulse Oximeter Pulse Oximetry (%) 95 Oxygen Delivery Method Room Air Intake Visit Reasons: CKD-Conf Preformer [employer] Required: No Accompanied by: Self / Same As Patient Allergies heparin Allergy (Verified 03/05/25 12:17) Unknown HPI Comments Details: I had the privilege of seeing Servando in follow-up of his mild CKD on backdrop of history of hyperkalemia as well as proteinuria. 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 He does monitor his blood sugar closely. His blood pressure has been at goal. He has H/O CVA. He has no urinary symptoms and takes adequate fluid intake by mouth. He avoids nonsteroidal anti-inflammatory medications. He had no other active complaints at the time of this office visit [facility] Medical History (Updated 03/05/25 @ 12:35 by Saul Landa MD) Chronic kidney disease, stage 2 (mild) Essential (primary) hypertension Hyperkalemia Family History Maternal Uncle Diabetes Mother Cancer Brother Cancer Social History Alcohol intake: never Patient Tobacco Use Status: Never used Tobacco Review of Systems Const All systems reviewed & are unremarkable except as noted in HPI and below Physical Exam Vital Signs: Last Vital Signs Pulse 74 03/05/25 12:17 BP 134/64 03/05/25 12:17 Pulse Ox 95 03/05/25 12:17 Oxygen Delivery Method Room Air 03/05/25 12:17 Const General: comfortable and no acute distress Orientation/consciousness: patient oriented x3 HEENT Head: Yes normocephalic Mouth: Normal oral and palatal mucosa present Eyes EOM: EOMs intact bilaterally Neck Neck: Yes supple Resp Auscultation: clear to auscultation bilaterally Cardio Jugular venous distension: no JVD Rate: regular rate GI Palpation (GI): Soft to palpation Auscultation: normal bowel sounds General: Yes no CVA tenderness Back/Spine/Pelvis Back: no CVA tenderness Skin General skin exam: no rashes or lesions noted Neuro General: patient oriented x3 and moves all extremities Extrem General: Yes no pedal edema Results Reviewed Nephrology Results: Hgb, (14.0-18.0) 13.4 g/dl L 03/03/25 WBC, (4.8-10.8) 8.0 X10*3/uL 03/03/25 Plt Count, (160-400) 240 X10*3/uL 03/03/25 Sodium, (135-145) 146 mmol/L H 03/03/25 Potassium, (3.3-5.1) 4.2 mmol/L Δ 03/03/25 Chloride, (96-108) 105 mmol/L 03/03/25 Carbon Dioxide, (22-29) 29 mmol/L 03/03/25 BUN, (9-16) 15 mg/dL 03/03/25 Creatinine, (0.5-1.4) 1.09 mg/dL 03/03/25 Calcium, (8.4-10.2) 8.9 mg/dL Δ 03/03/25 Urine Creatinine 38.53 mg/dL 03/03/25 Protein/Creatinin Ratio, (<0.2) 0.52 H 03/03/25 Assessment & Plan Assessment & Plan (1) Chronic kidney disease, stage 2 (mild): Code(s): N18.2 - Chronic kidney disease, stage 2 (mild) Category: Medical (2) Hypertension: Code(s): I10 - Essential (primary) hypertension Category: Medical Qualifiers: Hypertension type: primary hypertension Qualified Code(s): I10 - Essential (primary) hypertension (3) Proteinuria due to type 2 diabetes mellitus: Code(s): E11.29 - Type 2 diabetes mellitus with other diabetic kidney complication; R80.9 - Proteinuria, unspecified Category: Medical Plan 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 He had been on ACEI which had been discontinued. When he had hyperkalemia he most likely had reduced aldosterone, reduced distal perfusion of the nephron with relative insulin deficiency. His hyperkalemia had resolved. He is a great candidate for Jardiance after cutting back on metformin( can be started at 10 mg which can be increased to 25 mg( at that time hopefully his metformin can be D/Varun). Once this is established, we could start him on GLP 1 agonist and wean him off glipizide to avoid polypharmacy. His blood pressure in the office was close to goal. He is tolerating allopurinol and statins.I did not make any other medication changes today. He was encouraged to cut back salt in the diet, lose weight and remain well hydrated. Follow-up about laboratory studies were ordered. All questions were answered. Orders: Orders Creatinine 4 Months E11. - Type 2 diabetes mellitus with other diabetic kidney complication, I10 - Essential (primary) hypertension, N18.2 - Chronic kidney disease, stage 2 (mild), R80.9 - Proteinuria, unspecified Blood Urea Nitrogen 4 Months E11. - Type 2 diabetes mellitus with other diabetic kidney complication, I10 - Essential (primary) hypertension, N18.2 - Chronic kidney disease, stage 2 (mild), R80.9 - Proteinuria, unspecified Electrolytes 4 Months E11. - Type 2 diabetes mellitus with other diabetic kidney complication, I10 - Essential (primary) hypertension, N18.2 - Chronic kidney disease, stage 2 (mild), R80.9 - Proteinuria, unspecified Protein Creatinine Ratio, Ur 4 Months . - Type 2 diabetes mellitus with other diabetic kidney complication, I10 - Essential (primary) hypertension, N18.2 - Chronic kidney disease, stage 2 (mild), R80.9 - Proteinuria, unspecified Coding Level of Care Code Est Pt Level 4 (76443) Diagnoses Chronic kidney disease, stage 2 (mild) N18.2 Primary hypertension I10 Hypertension type: primary hypertension Proteinuria due to type 2 diabetes mellitus .; R80.9
[2025-03-05 12:17] VITALS: BP 134/64; PULSE 74; O2SAT 95
--- OUTSIDE RECORDS SUMMARY | 2025-03-05 12:20 | XMS_ITS | Clinical Summary ---
Author Organization [facility] Address [address] [place] [address] Phone Care Team Providers Care Barrel Bander Name Role Phone Unknown, Unknown Primary Care [...] EST) SODIUM 141 136 - 145 mmol/L [facility] POTASSIUM 4.0 3.4 - 5.1 mmol/L [facility] CHLORIDE 101 98 - 107 mmol/L [facility] CO2 28 22 - 31 mmol/L [facility] BUN 19 6 - 23 mg/dL [facility] CREATININE 0.88 0.50 - 1.20 mg/dL [facility] GLUCOSE 270(H) 70 - 100 mg/dL [facility] CALCIUM 8.8 8.8 - 10.7 mg/dL [facility] EGFR 83 >59 mL/min/1.[address] [facility] Comment:If patient is black, multiply result by 1.159. Estimated glomerular filtration rate calculated using the CKD-EPI equation. ANION GAP 12 7 - 17 mmol/L [facility] Blood 07/04/2018 9:37 AM EST 07/04/2018 10:10 AM EST Emerita Rothman MD LAB BLOOD ORDERABLES Final Re sult Performing Organization Address City/State/[facility] Co de Phone Number [facility] [address] [place] [address] from Last 3 Months or Most Recently Relevant to Health Maintenance Insurance [employer] TOTAL CHOICE INDEMNITY MEDICARE PART A & B [employer] TOTAL CHOICE INDEMNITY MEDICARE PART A & B [employer] MEDICARE PART A & B [employer] INDEMNITY MEDICARE PART A & [place] [address] [place] [id number] TOTAL CHOICE INDEMNITY MEDICARE PART A & B [employer] [facility] TOTAL CHOICE INDEMNITY MEDICARE PART A & B [employer] [facility] TOTAL CHOICE INDEMNITY MEDICARE PART A & B [employer] TOTAL CHOICE INDEMNITY MEDICARE PART A & B [employer] TOTAL CHOICE INDEMNITY MEDICARE PART A & [place] [address] [place] [id number] TOTAL CHOICE INDEMNITY MEDICARE PART A & B Advance Directives For more information, please contact: [phone] (9AM - 5PM [place], Sunday-Sunday) * Full Code (Confirmed) (Latest Code Status on File) Date Activated Date Inactivated Comments 06/27/2018 11:01 PM 07/04/2018 4:09 PM Question Answer Comments Code Status Confirmed With: FamilySurrogate Code Status Communicated To: Other (specify belo w) Code Discussion Comments: Archana Barahona * Full Code (Presumed) Date Activated Date Inactivated Comments 06/27/2018 6:33 PM 06/27/2018 11:01 PM Care Teams Barrel Bander Relationship Specialty Start Date End Date Unknown, Unknown, PCP - General 06/10/18 Additional Source Comments The information contained in this document represents components of the legal health record. It is not the complete legal health record.[facility]
--- OUTSIDE RECORDS SUMMARY | 2025-03-05 12:20 | XMS_ITS ---
Author Organization [facility] Care Team Providers Care Rattlesnake Farmer Name Role Phone Sean Davison Unavailable Unavailable Planeenriqueta, Michelle Unavailable Unavailable Levheim, Michelle Unavailable Unavailable Allergies and adverse reactions Code CodeSystem Substance Reaction Severity StartDate Concern Status 287992 RXNORM Heparin Nausea (code- 051062421, SNOMED CT) Moderate 07/28/2020 active Care Team Name Role Address Phone Organization Dates Sean Davison PCP [address] [facility] [employer] [address], [place], [address], [place]Office): : [facility] 07/29/2020 - 08/30/2020 Michelle Planeta [facility] 07/29/2020 - 08/30/2020 Michelle Levheim [address], [place], [address], [place] (Office): [facility] 07/29/2020 - 08/30/2020 Immunizations Immunization Status Vaccine Details Vaccine Code CodeSystem Date Notes SARS-COV-2 (COVID-19) completed Step 1 of Multi-step with next step required created date: 10/20/2020 consent date: 10/20/2020 administered date: 08/24/2020 PFIZER [id number] SARS-COV-2 (COVID-19) new created date: 08/02/2020 consent [...] 1 ACUTE KIDNEY FAILURE , UNSPECIFIED [address] active 2 ACUTE RESPIRATORY FAILURE, UNSPECIFIED WHETHER WITH HYPOXIA OR HYPERCAPNIA [address] active 3 ALLERGIC RHINITIS, UNSPECIFIED [address] active 4 ATROPHIC DISORDER OF SKIN, UNSPECIFIED [address] active 5 BENIGN PROSTATIC HYPERPLASIA WITH LOWER URINARY TRACT SYMPTOMS [address] active 6 BRONCHITIS, NOT SPECIFIED ACUTE OR CHRONIC [address] active 7 CHRONIC KIDNEY DISEASE, STAGE 3 UNSPECIFIED [address] active 8 CORNEAL TRANSPLANT STATUS [address] active 9 COVID-[address] active 10 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, UNSPECIFIED [address] active 11 DIFFICULTY IN WALKIN G, NOT ELSEWHERE CLASSIFIED [address] active 12 DYSPHAGIA, OROPHARYNGEAL PHASE [address] active 13 DYSPHAGIA, PHARYNGOESOPHAGEAL PHASE [address] active 14 ESSENTIAL (PRIMARY) HYPERTENSION [address] active 15 GOUT, UNSPECIFIED [address] active 16 HEPARIN INDUCED THROMBOCYTOPENIA (HIT) [address] active 17 HISTORY OF FALLING [address] active 18 HYPERKALEMIA [address] active 19 KERATOCONUS, UNSPECIFIED, UNSPECIFIED EYE [address] active 20 LOW BACK PAIN [address] active 21 MAJOR DEPRESSIVE DISORDER, RECURRENT, UNSPECIFIED [address] active 22 MALIGNANT CARCINOID TUMOR OF THE RECTUM [address] active 23 MORBID (SEVERE) OBESITY DUE TO EXCESS CALORIES [address] active 24 MUSCLE WASTING AND ATROPHY, NOT ELSEWHERE CLASSIFIED, LEFT LOWER LEG [address] active 25 MUSCLE WASTING AND ATROPHY, NOT ELSEWHERE CLASSIFIED, RIGHT LOWER LEG [address] active 26 OBSTRUCTIVE SLEEP APNEA (ADULT) (PEDIATRIC) [address] active 27 OSTEOARTHRITIS OF KNEE, UNSPECIFIED [address] active 28 OTHER FATIGUE [address] active 29 OTHER INTERVERTEBRAL DISC DEGENERATION, LUMBAR REGION [address] active 30 OTHER PULMONARY EMBOLISM WITHOUT ACUTE COR PULMONALE [address] active 31 OTHER SPECIFIED ANEMIAS [address] active 32 PERSONAL HISTORY OF OTHER VENOUS THROMBOSIS AND EMBOLISM [address] active 33 PERSONAL HISTORY OF PULMONARY EMBOLISM [address] active 34 SYNCOPE AND COLLAPSE [address] active 35 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 [address] active 36 TRIGGER FINGER, UNSPECIFIED FINGER [address] active 37 TROCHANTERIC BURSITI S, RIGHT HIP [address] active 38 TYPE 2 DIABETES MELLITUS WITHOUT COMPLICATIONS [address] active 39 UNSPECIFIED ABNORMALITIES OF GAIT AND MOBILITY [address] active 40 UNSPECIFIED GLAUCOMA [address] active 41 WEAKNESS [address] active Reason for Referral No Reasons for Referral Entered Social History Social History Observation Description Start Date End Date Code Code System Current Smoking Status Tobacco smoking consumption unknown 231583509 SNOMED CT Sex Assigned At Male 1940 [address]-7 [facility] Gender Identity Vital Signs Code Code System Vitals Name Values and Units Timing Information 2339-0 [facility] Blood Sugar Qihbd=574.0 Units=mg/dL 08/30/2020 8462-4 [facility] Blood Pressure-Diastolic Value=70 Un its=mmHg 08/30/2020 8480-6 [facility] Blood Pressure-Systolic Ihvla=328 Un its=mmHg 08/30/2020 8867-4 [facility] Heart rate Value=78.0 Units=/min 31108-2 [facility] Pain Level Value=0.0 08/30/2020 9279-1 [facility] Respiratory Rate Value=18.0 Units=/m in 08/30/2020 8310-5 [facility] Body Temperature Value=97.3 Units= F 08/30/2020 43278-8 [facility] O2 % BldC Oximetry Value=95.0 Units= % 08/30/2020 61041-6 [facility] Weight Btbtw=339.0 Units=Lbs 8302-2 [facility] Height Value=70.0 Units=Inches 07/29/2020
--- OUTSIDE RECORDS SUMMARY | 2025-03-05 12:20 | XMS_ITS | Clinical Summary ---
Author Organization [facility] Address [address] [facility] [address] [place] [address] Phone Care Team Providers Care Drivematic Machine Operator Name Role Phone Darian Shaffer MD Primary Care Provider [phone] Allergies Active Allergy Reactions Criticality Noted Date [...] by mouth every night Active Vitamin E 30587 UNIT/60GM cream Apply topically Active fluticasone (FLONASE) [...] age to complete this topic Insurance Medicare [facility] Medicare [facility] Care Teams Drivematic Machine Operator Relationship Specialty Start Date End Date Darian Shaffer MD AGUILAR TALLEY [place] PCP - General Internal Medicine 04/18/21
== END 2025-03-05 12:46 | disposition home or self-care (01) ==
LOC: HO.HKAS 11:37
PROVIDERS: Visit Provider Internal Medicine Nephrology
DX: I12.9 Hypertensive chronic kidney disease with stage 1 through stage 4 chronic kidney disease, or unspecified chronic kidney disease (principal); N18.2 Chronic kidney disease, stage 2 (mild); E11.29 Type 2 diabetes mellitus with other diabetic kidney complication; R80.9 Proteinuria, unspecified
CPT/HCPCS: 99214

== ENCOUNTER → 2025-03-05 11:36 | Outpatient (BNVA) | payer MEDICARE, OTHER, SELFPAY | PROVIDERS: Visit Provider Internal Medicine Nephrology | DX: E11.22 Type 2 diabetes mellitus with diabetic chronic kidney disease (principal); I12.9 Hypertensive chronic kidney disease with stage 1 through stage 4 chronic kidney disease, or unspecified chronic kidney disease; N18.2 Chronic kidney disease, stage 2 (mild); E11.29 Type 2 diabetes mellitus with other diabetic kidney complication; R80.9 Proteinuria, unspecified | CPT/HCPCS: 99212 ==

== ENCOUNTER 2025-07-01 14:00 | Outpatient (REF) | payer MEDICARE, OTHER, SELFPAY ==
--- OUTSIDE RECORDS SUMMARY | 2015-02-23 06:15 | XMS_ITS | Continuity of Care Document ---
Author Organization [facility] Address [address] [place] [address] [place] Phone Care Team Providers Care Center Sales And Service Associate Name Role Phone Yojana CALDWELL, FACR, Cassie Unavailable Unavailab le Allergies, Adverse Reactions, Alerts Substance Reaction Status Criticality No Known allergies Medications Medication Instructions Dosage Dose Quantity Effective Dates (start - stop) Status Indication Fill Status Comments metformin 1,000 mg tablet take 1 tablet by oral route 2 times every day with morning and evening meals 325 MG 1 tablet - Active gabapentin 300 mg capsule take 1 capsule by oral route 3 times every day 325 MG 1 tablet - Active omeprazole 20 mg capsule,karl yed release take 1 capsule by oral route every day before a meal 325 MG 1 tablet - Active LISINOPRIL-H YDROCHLOROTH IAZIDE (unknown strength) take 1 tablet by oral route every day Not Availab le - Active tramadol 50 mg tablet take 1 tablet by oral route every 6 hours as needed 325 MG 1 tablet - Active glipizide 10 mg tablet take 1 tablet by ORAL route every day before meals 10 MG 1 tablet - Active pravastatin 40 mg tablet take 1 tablet by oral route every day 325 MG 1 tablet - Active tamsulosin ER 0.4 mg capsule,exte nded release 24 hr take 1 capsule by oral route every day 1/2 hour following the same meal each day 325 MG 1 tablet - Active Januvia 100 mg tablet take 1 tablet by oral route every day 325 MG 1 tablet - Active aspirin 325 mg tablet,delay ed release take 1 tablet by oral route every day 325 MG 1 tablet - Active Advance Directives Directive Yes / No Effective Date File Name No Information Encounters Encounter Description Practice Location Reason(s) For Visit Diagnoses Date Provider Encounter Disposition [facility] , [address] [place], [place] [address], [place], [id number], [place] [phone] Fabius No Information 5 Yojana Matthews. [address], [place], [id number] , [place]. tel: [phone] Family History Family Member Type Diagnosis Age At Onset Mother Problem (finding) malignant neoplasm of l iver Daughter Problem (finding) alcoholism Father Problem (finding) stroke Brother Problem (finding) Cancer Payers Payer name Insurance type Identifiers Authorization(s) Com [employer] CI er ID: [id number] Name: Coverage Status Eligibility Check on: UnknownRelationship to Subscriber: selfPayer Address: [facility], [place], [id number], [facility] Phone: [phone] Social History Type Description Quantity Date Captured Comments Alcohol Use Details 2 drinks weekly Caffeine Use Details coffee 2 cups per day Tobacco Use Status Smoking Status Former smoker Sex Male Current Gender Male (finding) Vital Signs Date / Time: Height Weight BMI Pulse Rate Blood Pressure Temperature Respiratory Rate Body Surface Area Head Circumference Head Circ. Percentile Wt./Manohar. Percentile BMI percentile Pulse Ox Inhaled Ox 11:54 AM 68.00 in 122.016 kg (269.00 lbs) 40.9 0 kg/m eter (2) 72 /min 122/78 mm[Hg] Chief Complaint And Reason For Visit No Information Plan Of Treatment Date Type Action Status Patient Education Back Pain: After Your V isit completed History Of Present Illness Encounter Date Complaint History Of Prese nt Illness No Information Functional Status Date Description Comments No Information Instructions Date Instruction Additional Infor mation No Information Assessments Type Assessment Date No Information
--- OUTSIDE RECORDS SUMMARY | 2019-03-28 10:20 | XMS_ITS | Continuity of Care Document ---
[facility] Organization [facility] Address [address] [place] [phone] Phone Care Team Providers Care Cable Technician Name Role Phone Filiberto Sandhu DO Unavailable Unavailable Advance Directives Directive Yes / No Effective Date File Name No Information Encounters Encounter Description Practice Location Reason(s) For Visit Diagnoses Date Provider [facility], [address], [id number], [place] tel:[phone] [address] [place] [address] No Information 2018 Edson De Los Santos. [address] [place] [address], [id number], [place]. tel:[phone] Family History Family Member Type Diagnosis Age At Onset No Information Payers Payer name Insurance type Covered democrat ID Authoriza tion(s) No Information Social History Type Description Quantity Date Captured Comments Sex Male Smoking Status No Information Chief Complaint And Reason For Visit No Information History Of Present Illness Encounter Date Complaint History Of Prese nt Illness No Information Instructions Date Instruction Additional Infor mation No Information Assessments Type Assessment Date No Information
--- OUTSIDE RECORDS SUMMARY | 2025-07-01 17:03 | XMS_ITS | Clinical Summary ---
Author Organization [facility] Address [address] [facility] [address] [place] [address] Phone Care Team Providers Care Ski Tow Operator Name Role Phone Darian Shaffer MD Primary Care Provider [phone] Allergies Active Allergy Reactions Criticality Noted Date [...] by mouth every night Active Vitamin E 95841 UNIT/60GM cream Apply topically Active fluticasone (FLONASE) [...] 07/28/202004/18 Other intervertebral disc de generation, lumbosacral region 07/28/2020 04/18/2021 Overview (05/06/2024): Replacing diagnoses that [...] Foot Exam 04/18/2021 Influenza Vaccine (#1) 2025 0, 04/26/2011, 06/06/2009, Additional history exists Pneumococcal Vaccine: 50+ Years Completed 07/03/2014, 07/13/2009 Pneumococcal Vaccine: Peds (0 to 5 Years) and At-Risk Patients (6 to 49 Years) Discontinued 07/03/2014, 07/13/2009 Hepatitis B Vaccine Aged Out No longe r eligible based on patient's age to complete this topic Insurance Medicare [facility] Medicare [facility] Care Teams Ski Tow Operator Relationship Specialty Start Date End Date Darian Shaffer MD AGUILAR TALLEY [place] PCP - General Internal Medicine 04/18/21
--- OUTSIDE RECORDS SUMMARY | 2025-07-01 17:03 | XMS_ITS | Clinical Summary ---
Author Organization [facility] Address [address] [place] [address] Phone Care Team Providers Care Boilermaker Apprentice Name Role Phone Unknown, Unknown Primary Care [...] 07/04/2019 07/04/2018, 06/07, 07/02/2018, Additional history exists INFLUENZA VACCINE (#1) 2025 9, 04/29/2018, 03/22/2017 COVID-19 VACCINE ( - season) 2025 08/24/2020 ZOSTER VACCINES Completed 01/27/2019, 12/2018, 09/23/2018, Additional history exists HEPATITIS A VACCINES Aged Out No long er eligible based on patient's age to complete this topic HIB VACCINES Aged Out No longer eligi ble based on patient's age to complete this topic IPV VACCINES Aged Out No longer eligi ble [...] Date/Time Associated Diagnosis Comments BASIC METABOLIC PANEL (BMP) Routine 07/04/2018 9:37 AM EST from Last 3 Months or Most Recently Relevant to Health Maintenance Results * (ABNORMAL) Basic metabolic panel (07/04/2018 9:37 AM EST) SODIUM 141 136 - 145 mmol/L [facility] POTASSIUM 4.0 3.4 - 5.1 mmol/L [facility] CHLORIDE 101 98 - 107 mmol/L [facility] CO2 28 22 - 31 mmol/L [facility] BUN 19 6 - 23 mg/dL [facility] CREATININE 0.88 0.50 - 1.20 mg/dL [facility] GLUCOSE 270(H) 70 - 100 mg/dL [facility] CALCIUM 8.8 8.8 - 10.7 mg/dL [facility] EGFR 83 >59 mL/min/1.7 3m2 [facility] Comment:If patient is black, multiply result by 1.159. Estimated glomerular filtration rate calculated using the CKD-EPI equation. ANION GAP 12 7 - 17 mmol/L [facility] Blood 07/04/2018 9:37 AM EST 07/04/2018 10:10 AM EST us Emerita Rothman MD LAB BLOOD BKR ORDERABLES Mayuri villarreal Result Performing Organization Address City/State/[facility] Co de Phone Number [facility] [address] [place] [phone] from Last 3 Months or Most Recently Relevant to Health Maintenance Insurance [employer] [facility] TOTAL CHOICE INDEMNITY MEDICARE PART A & B Member Subscriber Plan / Payer (Ef fective 2007-Present) Name:Sangeeta Youngis R Member ID:[id number] Relation to Subscriber:Self Name:Servando Young R Subscriber ID:[id number] Payer ID:[id number] Group ID:Not on file Type:Medicare Address: [facility] [employer] [facility] [address] [place] [address] TOTAL CHOICE INDEMNITY MEDICARE PART A & B TOTAL CHOICE INDEMNITY MEDICARE PART A & B [employer] [facility] TOTAL CHOICE INDEMNITY MEDICARE PART A & B [employer] [facility] TOTAL CHOICE INDEMNITY MEDICARE PART A & B [facility] TOTAL CHOICE INDEMNITY MEDICARE PART A & B [facility] TOTAL CHOICE INDEMNITY MEDICARE PART A & B [employer] TOTAL CHOICE INDEMNITY MEDICARE PART A & B [facility] TOTAL CHOICE INDEMNITY MEDICARE PART A & B [facility] TOTAL CHOICE INDEMNITY MEDICARE PART A & B Advance Directives For more information, please contact: [phone] (9AM - 5PM [facility], Sunday-Sunday) * Full Code (Confirmed) (Latest Code Status on File) Date Activated Date Inactivated Comments 06/27/2018 11:01 PM 07/04/2018 4:09 PM Question Answer Comments Code Status Confirmed With: FamilySurrogate Code Status Communicated To: Other (specify belo w) Code Discussion Comments: Archana Barahona * Full Code (Presumed) Date Activated Date Inactivated Comments 06/27/2018 6:33 PM 06/27/2018 11:01 PM Care Teams Boilermaker Apprentice Relationship Specialty Start Date End Date Unknown, Unknown, PCP - General 06/10/18 Additional Source Comments The information contained in this document represents components of the legal health record. It is not the complete legal health record.[facility]
--- OUTSIDE RECORDS SUMMARY | 2025-07-01 17:04 | XMS_ITS | Data Portability ---
Author Organization [place] - [facility] Address [address] [place] [address] Care Team Providers Care Video Effects Editor Name Role Phone RUPAL WOOD Primary Care Provider [phone] Assessment Encounter Date Assessment Date Assessment LastModified [...] mcg/actuati on nasal spray,suspe nsion 2023 024 [facility], [address] [place] [address], [phone], 12:04:49 Patient TargetsNo targets recorded. Patient InstructionsNo [...] audio gram No observ ation record ed. [email or web address] Not Available 02/03 16:25:27 Result Notes None recorded. Problems Name Problem SNOMED Code Status Onset Date Resolution Date Notes Provider Name and Address Organization Details Recorded Time Chronic maxillary sinusitis 08878531 Active 2023 MEGHNA HOOPER MD [address] [address], [place], [address], [facility] - [facility] 4 11:59:38 Deviated nasal septum 924282733 Active 2023 MEGHNA HOOPER MD [address] [address], [place], [address], [facility] 4 11:59:43 Dysfunction of eustachian tube 24280799 Active 2023 MEGHNA HOOPER MD [address] [address], [place], [address], [facility] 4 12:00:24 Sensorineural hearing loss of bilateral ears 465359460 Active 2023 DARY JACKSON [address] [place] [address], [place], [address], [facility] 4 11:18:13 Problem Notes None recorded. Procedures Surgical History Date Name Laterality Status Provider Name and Address Organization Details Recorded Time 02/12/2024 Comp Audio with Tymps - 92375 & 02947 completed DARY JACKSON [address], [address], [facility] 02/12/2024 11:18:06 Imaging Results None recorded. Procedure Notes None recorded. Medical Equipment None Reported. Medications Name Sig Start Date Stop Date Status Note LastModified by Organization Details LastModified Time fluticasone propionate 50 mcg/actuatio n nasal spray,suspen delroy INSTILL 2 SPRAYS EVERY DAY BY INTRANASAL ROUTE. active Not Available Not Available No t Available Vitals Date Recorded Body weight Body mass index (BMI) Body height Provider Name and Address Organization Details Last Updated DateTime 01/22/2024 971112.17 g 39.9 kg/m2 165.[address] [facility] 01/22/2024 11:31:12 Social History None recorded. Functional Status None recorded. Mental Status None recorded. Family History Nothing Reported. Medical History Condition Response Hypertension Y Kidney Disease Y Past Encounters Encounter ID Performer Location Encounter Start Date Encounter Closed Date Diagnosis/Indication Diagnosis SNOMED-CT Code Diagnosis ICD10 Code Diagnosis IMO Codes Diagnosis Note [id number] MEGHNA MASON MD [facility] [address] [address] 01/22/2024 11:14:49 01/22/2024 12:06:44 Chronic maxillary sinusitis 60134632 J32.0 Deviated nasal septum 12 9807184 J34.2 Dysfunctio n of eustachian tube 48651999 H68.023 [id number] DARY JACKSON [facility] [address] [address] 02/12/2024 11:01:14 02/12/2024 18:43:31 Sensorineural hearing loss of bilateral ears 211817321 H90.3 Audiologic al evaluation results:Ri ght ear:Mild [...] ID Guarantor Name 02/12/2024 1 [place]IC[place] [employer]ATIONAL [employer] Rajendra Colon [id number] 7 Servando Colon 02/12/2024 2 [facility] - SENIOR SERVICES PLAN F (MEDICARE SUPPLEMENT) [id number] 2 Rajendra Colon [id number] Servando Colon Notes Date Note Type Note Provider Name and Address Organization Details Recorded Time 01/22/2024 text/html ROS as noted in the HPI Patient notes recent sinus infection about 1 month ago. He was cleaning his left ear with a Q-tip and caused damage. He was seen at urgent care and a CT was ordered because of the abnormal eardrum. He subsequently noted difficulty in the right ear. CT scan showed an opacified right middle ear and mastoid Headache given you and an air-fluid level in the left maxillary sinus. He notes snoring, sleep difficulties, history of elevated potassium and renal disease. He has bilateral hearing aids Outside records and imaging reviewed MEGHNA BERNARD MD [address] [facility] [address], [address], [place] - [facility] 01/22/2024 12:02:35 02/12/2024 text/html Audiological Evaluation HPIReported by PatientHearing LossFor hearing loss perceived, patient reportshearing loss in both ears (left ear worse).DizzinessFor balance symptoms reported, patient reportsdisequilibriu m.Use of amplification or other hearing devicesFor use of amplification or other hearing devices, patient reportshearing aid use in both ears. DARY JACKSON [address] [facility], [place], [address], [place] - [facility] 02/12/2024 12:54:18
[2025-07-01 18:35] LABS: Protein/Creatinine Ratio, Ur 0.29 (<0.2); Total Protein Urine Random 24 mg/dL (<12)
[2025-07-01 18:38] LABS: Anion Gap 17 (12-20); Blood Urea Nitrogen 16 mg/dL (9-16); Carbon Dioxide 25 mmol/L (22-29); Chloride 106 mmol/L (96-108); Estimated Glomerular Filt Rate > 60; Potassium 4.6 mmol/L (3.3-5.1); Sodium 143 mmol/L (135-145)
== END 2025-07-01 14:01 | disposition home or self-care (01) ==
LOC: HO.HKASLDS 14:00
PROVIDERS: PCP Internal Medicine; Visit Provider Internal Medicine Nephrology
DX: I12.9 Hypertensive chronic kidney disease with stage 1 through stage 4 chronic kidney disease, or unspecified chronic kidney disease (principal); N18.2 Chronic kidney disease, stage 2 (mild); E11.22 Type 2 diabetes mellitus with diabetic chronic kidney disease; R80.9 Proteinuria, unspecified
CPT/HCPCS: 36415; 80051; 82565; 82570; 84156; 84520

== ENCOUNTER 2025-07-07 14:32 | Outpatient (AMB) | payer MEDICARE, OTHER, SELFPAY ==
--- NOTE | 2025-07-07 14:25 | HO.NEPHOV_ITS ---
Vital Signs 07/07/25 14:30 Weight 240 lb Intake Visit Reasons: 4mnth w labs-Conf Accompanied by: Self / Same As Patient Allergies heparin Allergy (Verified 07/07/25 14:29) Unknown HPI Comments Details: I had the privilege of seeing Servando by tele health in follow-up of his mild CKD on backdrop of history of hyperkalemia as well as proteinuria. 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 He does monitor his blood sugar closely. His blood pressure has been at goal. He has H/O CVA. He has no urinary symptoms and takes adequate fluid intake by mouth. He avoids nonsteroidal anti-inflammatory medications. He had no other active complaints at the time of this office visit [facility] Medical History (Updated 07/07/25 @ 14:50 by Saul Landa MD) Chronic kidney disease, stage 2 (mild) Essential (primary) hypertension Hyperkalemia Family History Maternal Uncle Diabetes Mother Cancer Brother Cancer Social History Alcohol intake: never Patient Tobacco Use Status: Never used Tobacco Telehealth Telehealth Telehealth Platform: Telephone Location of provider rendering services: practice address Location of patient: address on file Patient Identification confirmed using: Name, : Yes Telehealth method: voice only Patient verbally consented to treatment: Yes Patient verbally consented to billing insurance company: Yes Patient informed of any privacy concerns related to visit: No Minutes spent on Phone/Video with Pt.: 10 Results Reviewed Nephrology Results: Sodium, (135-145) 143 mmol/L 07/01/25 Potassium, (3.3-5.1) 4.6 mmol/L 07/01/25 Chloride, (96-108) 106 mmol/L 07/01/25 Carbon Dioxide, (22-29) 25 mmol/L 07/01/25 BUN, (9-16) 16 mg/dL 07/01/25 Creatinine, (0.5-1.4) 1.16 mg/dL 07/01/25 Calcium, (8.4-10.2) 8.9 mg/dL Δ 03/03/25 Urine Creatinine 84.20 mg/dL 07/01/25 Protein/Creatinin Ratio, (<0.2) 0.29 H 07/01/25 Assessment & Plan Assessment & Plan (1) Proteinuria due to type 2 diabetes mellitus: Code(s): E11.29 - Type 2 diabetes mellitus with other diabetic kidney complication; R80.9 - Proteinuria, unspecified Category: Medical (2) Hypertension: Code(s): I10 - Essential (primary) hypertension Category: Medical Qualifiers: Hypertension type: primary hypertension Qualified Code(s): I10 - Essential (primary) hypertension (3) CKD stage 3a, GFR 45-59 ml/min: Code(s): N18.31 - Chronic kidney disease, stage 3a Category: Medical Plan 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 He had been on ACEI which had been discontinued. When he had hyperkalemia he most likely had reduced aldosterone, reduced distal perfusion of the nephron with relative insulin deficiency. His hyperkalemia had resolved. He is on Farxiga. He is tolerating allopurinol and statins.I did not make any other medication changes today. He was encouraged to cut back salt in the diet, lose weight and remain well hydrated. Follow-up about laboratory studies were ordered. All questions were answered. Orders: Orders Electrolytes 3 Months E11.29 - Type 2 diabetes mellitus with other diabetic kidney complication, I10 - Essential (primary) hypertension, N18.31 - Chronic kidney disease, stage 3a, R80.9 - Proteinuria, unspecified Blood Urea Nitrogen 3 Months E11.29 - Type 2 diabetes mellitus with other diabetic kidney complication, I10 - Essential (primary) hypertension, N18.31 - Chronic kidney disease, stage 3a, R80.9 - Proteinuria, unspecified Creatinine 3 Months E11.29 - Type 2 diabetes mellitus with other diabetic kidney complication, I10 - Essential (primary) hypertension, N18.31 - Chronic kidney disease, stage 3a, R80.9 - Proteinuria, unspecified Calcium 3 Months E11.29 - Type 2 diabetes mellitus with other diabetic kidney complication, I10 - Essential (primary) hypertension, N18.31 - Chronic kidney disease, stage 3a, R80.9 - Proteinuria, unspecified Coding Level of Care Code Est Pt Level 4 (22045) Diagnoses Proteinuria due to type 2 diabetes mellitus E11.29; R80.9 Primary hypertension I10 Hypertension type: primary hypertension CKD stage 3a, GFR 45-59 ml/min N18.31
--- OUTSIDE RECORDS SUMMARY | 2025-07-07 16:28 | XMS_ITS | Clinical Summary ---
Author Organization [facility] Address [address] [place] [address] Phone Care Team Providers Care Rn House Supervisor Name Role Phone Unknown, Unknown Primary Care [...] EST) SODIUM 141 136 - 145 mmol/L [facility] POTASSIUM 4.0 3.4 - 5.1 mmol/L [facility] CHLORIDE 101 98 - 107 mmol/L [facility] CO2 28 22 - 31 mmol/L [facility] BUN 19 6 - 23 mg/dL [facility] CREATININE 0.88 0.50 - 1.20 mg/dL [facility] GLUCOSE 270(H) 70 - 100 mg/dL [facility] CALCIUM 8.8 8.8 - 10.7 mg/dL [facility] EGFR 83 >59 mL/min/1.7 3m2 [facility] Comment:If patient is black, multiply result by 1.159. Estimated glomerular filtration rate calculated using the CKD-EPI equation. ANION GAP 12 7 - 17 mmol/L [facility] Blood 07/04/2018 9:37 AM EST 07/04/2018 10:10 AM EST us Emerita Rothman MD LAB BLOOD BKR ORDERABLES Mayuri villarreal Result Performing Organization Address City/State/[facility] Co de Phone Number [facility] [address] [place] [phone] from Last 3 Months or Most Recently Relevant to Health Maintenance Insurance [employer] [facility] TOTAL CHOICE INDEMNITY MEDICARE PART A & B Member Subscriber Plan / Payer (Ef fective 2007-Present) Name:Sangeeta Youngis R Member ID:[id number] Relation to Subscriber:Self Name:Servando Young R Subscriber ID:[id number] Payer ID:[id number] Group ID:Not on file Type:Medicare Address: [facility] [employer] [facility] [address] [place] [address] TOTAL CHOICE INDEMNITY MEDICARE PART A & B TOTAL CHOICE INDEMNITY MEDICARE PART A & B [employer] [facility] TOTAL CHOICE INDEMNITY MEDICARE PART A & B [employer] [facility] TOTAL CHOICE INDEMNITY MEDICARE PART A & B [employer] TOTAL CHOICE INDEMNITY MEDICARE PART A & B [employer] TOTAL CHOICE INDEMNITY MEDICARE PART A & B [employer] TOTAL CHOICE INDEMNITY MEDICARE PART A & B [facility] TOTAL CHOICE INDEMNITY MEDICARE PART A & B [facility] TOTAL CHOICE INDEMNITY MEDICARE PART A & B Advance Directives For more information, please contact: [phone] (9AM - 5PM [facility], Sunday-Sunday) * Full Code (Confirmed) (Latest Code Status on File) Date Activated Date Inactivated Comments 06/27/2018 11:01 PM 07/04/2018 4:09 PM Question Answer Comments Code Status Confirmed With: FamilySurrogate Code Status Communicated To: Other (specify belo w) Code Discussion Comments: Archana Barahona * Full Code (Presumed) Date Activated Date Inactivated Comments 06/27/2018 6:33 PM 06/27/2018 11:01 PM Care Teams Rn House Supervisor Relationship Specialty Start Date End Date Unknown, Unknown, PCP - General 06/10/18 Additional Source Comments The information contained in this document represents components of the legal health record. It is not the complete legal health record.[facility]
--- OUTSIDE RECORDS SUMMARY | 2025-07-07 16:28 | XMS_ITS | Data Portability ---
Author Organization [place] - [facility], [facility] Address [address] [place] [address] Care Team Providers Care Machinist Apprentice Wood Name Role Phone RUPAL WOOD Primary Care Provider [phone] Assessment Encounter Date Assessment Date Assessment LastModified [...] mcg/actuati on nasal spray,suspe nsion 2023 024 [facility], [address] [place] [address], [phone], 12:04:49 Patient TargetsNo targets recorded. Patient InstructionsNo [...] audio gram No observ ation record ed. [email or web address] Not Available 02/03 16:25:27 Result Notes None recorded. Problems Name Problem SNOMED Code Status Onset Date Resolution Date Notes Provider Name and Address Organization Details Recorded Time Chronic maxillary sinusitis 73719297 Active 2023 MEGHNA HOOPER MD [address] [address], [place], [address], [facility] - [facility] 4 11:59:38 Deviated nasal septum 631478755 Active 2023 MEGHNA HOOPER MD [address] [address], [place], [address], [facility] 4 11:59:43 Dysfunction of eustachian tube 97134075 Active 2023 MEGHNA HOOPER MD [address] [address], [place], [address], [facility] [place] 4 12:00:24 Sensorineural hearing loss of bilateral ears 590492497 Active 2023 DARY JACKSON [address] [place] [address], [place], [address], [facility] 4 11:18:13 Problem Notes None recorded. Procedures Surgical History Date Name Laterality Status Provider Name and Address Organization Details Recorded Time 02/12/2024 Comp Audio with Tymps - 01348 & 33134 completed DARY JACKSON [address], [address], [facility] 02/12/2024 11:18:06 Imaging Results None recorded. [...] Address Organization Details Last Updated DateTime 01/22/2024 796128.17 g 39.9 kg/m2 165.1 cm Bret Noland [facility] 01/22/2024 11:31:12 Social History None recorded. Functional Status None recorded. Mental Status None recorded. Family History Nothing Reported. Medical History Condition Response Hypertension Y Kidney Disease Y Past Encounters Encounter ID Performer Location Encounter Start Date Encounter Closed Date Diagnosis/Indication Diagnosis SNOMED-CT Code Diagnosis ICD10 Code Diagnosis IMO Codes Diagnosis Note [id number] MEGHNA MASON MD [facility] [address] [address] 01/22/2024 11:14:49 01/22/2024 12:06:44 Chronic maxillary sinusitis 16858812 J32.0 Deviated nasal septum 12 3775414 J34.2 Dysfunctio n of eustachian tube 79588265 H68.023 [id number] DARY JACKSON [facility] [address] [address] 02/12/2024 11:01:14 02/12/2024 18:43:31 Sensorineural hearing loss of bilateral ears 034598683 H90.3 Audiologic al evaluation results:Ri ght ear:Mild [...] Guarantor Name 02/12/2024 1 [place]IC[place] B-[place]: NATIONAL [employer] Rajendra Colon [id number] Servando Colon 02/12/2024 2 [facility] - SENIOR SERVICES PLAN F (MEDICARE SUPPLEMENT) [id number] Rajendra Colon [id number] Servando Colon Notes Date Note Type Note [...] and imaging reviewed MEGHNA BERNARD MD [address] [facility] [address], [place], [address], [place] - [facility] 01/22/2024 12:02:35 02/12/2024 text/html Audiological Evaluation HPIReported by PatientHearing LossFor hearing loss perceived, patient reportshearing loss in both ears (left ear worse).DizzinessFor balance symptoms reported, patient reportsdisequilibriu m.Use of amplification or other hearing devicesFor use of amplification or other hearing devices, patient reportshearing aid use in both ears. DARY JACKSON [address] [facility] 100, [place], [address], [place] - [facility] 02/12/2024 12:54:18
== END 2025-07-07 15:33 | disposition home or self-care (01) ==
LOC: HO.HKAS 14:32
PROVIDERS: PCP Internal Medicine; Visit Provider Internal Medicine Nephrology
DX: E11.29 Type 2 diabetes mellitus with other diabetic kidney complication (principal); R80.9 Proteinuria, unspecified; I10 Essential (primary) hypertension; N18.31 Chronic kidney disease, stage 3a
CPT/HCPCS: 99214

== ENCOUNTER → 2025-07-07 14:32 | Outpatient (BNVA) | payer MEDICARE, OTHER, SELFPAY | PROVIDERS: PCP Internal Medicine; Visit Provider Internal Medicine Nephrology | DX: E11.29 Type 2 diabetes mellitus with other diabetic kidney complication (principal); I12.9 Hypertensive chronic kidney disease with stage 1 through stage 4 chronic kidney disease, or unspecified chronic kidney disease; R80.9 Proteinuria, unspecified; N18.31 Chronic kidney disease, stage 3a | CPT/HCPCS: 99212 ==